=== PATIENT | male | born 1960 | race Caucasian/White ===

== ENCOUNTER 2020-01-10 09:23 | Emergency (ER) | payer OTHER ==
[~2020-01-10] VITALS: Ht 177.8 cm; Wt 67.9 kg
[2020-01-10] MEDS ORDERED: KEFLEX500 MG PO (12:01)
== END 2020-01-10 12:31 | disposition home or self-care (01) ==
LOC: ED 09:23
DX: K61.0 Anal abscess (principal); F17.200 Nicotine dependence, unspecified, uncomplicated; Z88.2 Allergy status to sulfonamides; Z88.8 Allergy status to other drugs, medicaments and biological substances
CPT/HCPCS: 46050; 99283-25; A9270

== ENCOUNTER 2020-05-19 08:53 | Emergency (ER) | payer OTHER ==
[~2020-05-19] VITALS: Ht 177.8 cm; Wt 67.6 kg
--- OUTSIDE RECORDS SUMMARY | ~2020-05-19 | XMS | Clinical Summary ---
Demographics + + + | Address | [address] | | | [place] [address] | + + + | Home Phone | | + + + | Preferred Language | Unknown | + + + | Marital Status | | + + + | Sabianist Affiliation | Unknown | + + + | Race | Unknown | + + + | Ethnic Group | Unknown | + + + Author + + + | Author | [facility] | | | and [place] | + + + | Organization | [facility] | | | and [place] | + + + | Address | Unknown | + + + | Phone | Unavailable | + + + Support + + +---------+ + | Name | Relationship | Address | Phone | + + +---------+ + | Luci Forrest | ECON | Unknown | | + + +---------+ + Care Team Providers + +------+ + | Care Qa Auditor Name | Role | Phone | + +------+ + PCP | Unavailable | + +------+ + Allergies Not on File Medications Not on file Active Problems Not on file Social History + +-------+ +--------+------+ | Tobacco Use | Types | Packs/Day | Years | Date | | | | | Used | | + +-------+ +--------+------+ | Never Assessed | | | | | + +-------+ +--------+------+ + + + | Sex Assigned at | Date Recorded | | | | + + + | Not on file | | + + + Last Filed Vital Signs Not on file Plan of Treatment + + +-------+ + | Health Maintenance | Due Date | Last | Comments | | | | Done | | + + +-------+ + | Vaccine: | | | | | Dtap/Tdap/Td (1 - | 7 | | | | Tdap) | | | | + + +-------+ + | Vaccine: Zoster (1 | | | | | of 2) | 8 | | | + + +-------+ + | Vaccine: Influenza | | | | | (Season Ended) | 0 | | | + + +-------+ + Results Not on filefrom Last 3 Months"
--- OUTSIDE RECORDS SUMMARY | ~2020-05-19 | XMS | Encounter Summary ---
Demographics + + + | Address | [address] | | | [place] [address] | + + + | Home Phone | | + + + | Preferred Language | Unknown | + + + | Marital Status | | + + + | Scientology Affiliation | Unknown | + + + | Race | Unknown | + + + | Ethnic Group | Unknown | + + + Author + + + | Author | [facility] | | | and [place] | + + + | Organization | [facility] | | | and [place] [...] Team Providers + +------+ + | Care Line Camera Operator Name | Role | Phone | + +------+ + PCP | Unavailable | + +------+ + Encounter Details +--------+ + + + + | Date | Type | Department | Care Team | Description | +--------+ + + + + | 11/10/ | Hospital | [facility] | Seth Christopher | | | 2003 | Encounter | [facility] | [place] [address] | | | | | [place] [address] | [place] | | | | | [place] | [place] [address] | | | | | [id number] | [phone] | | | | | [phone] | | | +--------+ + + + + Social History + +-------+ +--------+------+ | Tobacco [...] on file | | + + + documented as of this encounter Plan of Treatment Not on filedocumented as of this encounter Visit Diagnoses Not on filedocumented in this encounter"
[~2020-05-19 08:53] MED LIST: KEFLEX500 MG PO
[2020-05-19] MEDS ORDERED: KEFLEX500 MG PO (09:35)
== END 2020-05-19 09:59 | disposition home or self-care (01) ==
LOC: ED 08:53
PROC: 0D9QXZZ Drainage of Anus, External Approach (ICD-10-PCS; principal; 2020-05-19)
DX: K61.0 Anal abscess (principal); F17.200 Nicotine dependence, unspecified, uncomplicated; Z88.2 Allergy status to sulfonamides; Z88.8 Allergy status to other drugs, medicaments and biological substances
CPT/HCPCS: 10060; 99283-25

== ENCOUNTER 2020-08-15 09:10 | Day surgery (SDC) | payer OTHER ==
[~2020-08-15] VITALS: Ht 177.8 cm; Wt 67.6 kg
--- NOTE | 2020-08-15 11:27 | NUR ---
08/15/20 Karen7 Shira Lopez 1121-PATIENT ARRIVED TO PACU ON 2L NC RR EVEN LAYING LEFT LATERAL. ABDOMEN SOFT. PATIENT AROUSES TO VERBAL AND TACTILE STIMULI. PATIENT VERY DROWSY. IVF INFUSING.
--- NOTE | 2020-08-16 05:40 | OR ---
[facility] [address] [place], [place] [address] Signed DATE OF OPERATION: 08/15/2020 SURGEON: Maral Huizar MD PREOPERATIVE DIAGNOSES: 1. Screening. 2. Chronic constipation. 3. Question perianal lesion/fistula at 11 o'clock position. POSTOPERATIVE DIAGNOSIS: A 4 mm rectal polyp at 10 cm. PROCEDURE: Colonoscopy with hot biopsy. ESTIMATED BLOOD LOSS: None. INDICATIONS: Jeffery is a 59-year-old gentleman asked to see me for screening colonoscopy. He talked about his lower endoscopy in 1994 as well as 2008. He thinks both were fine. He gives no family history of colon cancer or polyps. He does have some chronic constipation. We talked about some pain and swelling to the left of his anus at the 11 o'clock position. He said it happened twice last year and had to be incised and drained apparently in the emergency room. On exam, we really could not even find I and D site opening or anything else. For his colonoscopy, I gave him a pamphlet in the office. He understands the nature of that test along with its risks including, but not limited to gas bloating, crampy abdominal pain, bleeding, perforation requiring surgery, and missed diagnosis. He also understands the need for IV conscious sedation, he had expressed understanding and wished to proceed. DESCRIPTION OF PROCEDURE: Jeffery was taken into our endoscopy suite and placed in the left lateral decubitus position. He was given IV sedation with 6 mg of Versed and 100 mcg of fentanyl. A digital rectal exam was performed and again this was unremarkable. The adult colonoscope was introduced and advanced all around into the cecum under direct visualization of camera without difficulty. His prep was quite good. We could easily see the appendiceal orifice and ileocecal valve. The scope was slowly withdrawn. Pictures were taken throughout for photodocumentation. He had no pathology throughout his entire colon. He had just a tiny 4 mm polyp at about 10 cm in the rectum. It was Electronically Signed By: MARAL HUIZAR MD 08/16/20 0540 PATIENT NAME: NAHUM GUTIERRES OPERATIVE REPORT DATE OF : 56 REPORT #: [id number] PHYSICIAN: MARAL HUIZAR MD PCP: LAURA ALEXANDRE REPORT IS CONFIDENTIAL AND NOT TO BE RELEASED WITHOUT AUTHORIZATION [address] [address] Signed easily removed with a hot biopsy forceps. Upon retroflexion of scope, we did not see any pathology associated with the anal canal. After this, the gas was suctioned out and colonoscope removed. Jeffery tolerated procedure quite well. RECOMMENDATIONS: I will see Jeffery back in my office in 7 to 14 days to review his results. MD VINAY Cifuentes/BRODYL /[id number] cc: MD Laura Cifuentes PA Copies: MARAL HUIZAR MD, LINDA PA ~ Electronically Signed By: MARAL HUIZAR MD 08/16/20 0540 PATIENT NAME: NENITANAHUMTRACI BANUELOS OPERATIVE REPORT DATE OF : 56 REPORT #: [id number] PHYSICIAN: MARAL HUIZAR MD PCP: LAURA ALEXANDRE REPORT IS CONFIDENTIAL AND NOT TO BE RELEASED WITHOUT AUTHORIZATION
--- NOTE | 2020-08-19 14:03 | PATH ---
[facility] [address] [place], [place] [address] Signed SPECIMEN(S): A COLON POLYP AT 10 CM SPECIMEN SOURCE: A. COLON POLYP AT 10 CM CLINICAL HISTORY: Screening. Post op: Internal hemorrhoids, rectal polyp. MICROSCOPIC DESCRIPTION: Histologic sections of all submitted blocks are examined by light microscopy. These findings, together with the gross examination, support the pathologic diagnosis. FINAL PATHOLOGIC DIAGNOSIS: Colon, polyp at 10 cm, polypectomy: - Hyperplastic polyp. - Negative for dysplasia or malignancy. NAL:caw:C2NR GROSS DESCRIPTION: The specimen, labeled "Sunil Gutierres, #1," and designated on the requisition "colon polyp at 10 cm," is received in formalin and consists of one rebolledo soft tissue fragment that measures 0.4 cm in greatest dimension. The specimen is entirely submitted in cassette (A1). FB (under the direct supervision of a pathologist) The Gross Description was prepared using a voice recognition system. The report was reviewed for accuracy; however, sound-alike word errors, addition and/or deletions may occur. If there is any question about this report, please contact Client Services. PERFORMING LABORATORY: The technical component was performed by [facility], [address] [place] [id number] (Digital Media Coordinator: Ary Mane MD; CLIA# [id number]). [facility], [address] [address] (CLIA# [id number]). Diagnostician: Shireen Carreon MD Pathologist Electronically Signed 08/19/2020 PATIENT NAME: SUNIL GUTIERRES PATHOLOGY DATE OF : 56 REPORT #: [id number] PHYSICIAN: ADRIAN MEYERS PCP: CARYL ALEXANDRE REPORT IS CONFIDENTIAL AND NOT TO BE RELEASED WITHOUT AUTHORIZATION [address] [address] Signed Copies: ~ PATIENT NAME: SUNIL GUTIERRES PATHOLOGY DATE OF : 56 REPORT #: [id number] PHYSICIAN: ADRIAN PATHOLOGY PCP: CARYL ALEXANDRE REPORT IS CONFIDENTIAL AND NOT TO BE RELEASED WITHOUT AUTHORIZATION
== END 2020-08-15 12:15 | disposition home or self-care (01) ==
LOC: OPS 09:10 → DS 09:10 → OPS 10:30
PROVIDERS: ATTEND Colon & Rectal Surgery
PROC: 0DBP8ZZ Excision of Rectum, Via Natural or Artificial Opening Endoscopic (ICD-10-PCS; principal; 2020-08-15 10:30)
DX: Z12.11 Encounter for screening for malignant neoplasm of colon (principal); K62.1 Rectal polyp; F17.210 Nicotine dependence, cigarettes, uncomplicated; Z88.2 Allergy status to sulfonamides
CPT/HCPCS: 99153; G0500; J2250; J3010; J7121